=== PATIENT | male | born 1965 | race Caucasian/White ===

== ENCOUNTER 2021-06-01 11:49 | Day surgery (SDC) | payer OTHER ==
[~2021-06-01] VITALS: Ht 182.9 cm; Wt 122.0 kg
[2021-06-01 13:43] VITALS: BP 145/95; PULSE 73; TEMP 97.4
[2021-06-01] MEDS ORDERED: PEPCID 20MG TAB20 MG PO (13:46)
[2021-06-01] MEDS ORDERED: SINGULAIR 110 MG/TAB PO (13:47)
[2021-06-01] MEDS ORDERED: REGLAN 5MG T5 MG/TAB PO (13:47)
[2021-06-01] MEDS ORDERED: PRILOSEC 20MG20 MG PO (13:47)
[2021-06-01] MEDS ORDERED: ALLEGRA 180MG180 MG PO (13:48)
[2021-06-01] MEDS ORDERED: PROAIR HFA0.09 MG/AC IH (13:48)
[2021-06-01] MEDS ORDERED: MOTRIN 600600 MG/TAB PO (14:47)
[2021-06-01] MEDS ORDERED: NORCO 325 MG-51 TAB PO (14:47)
[2021-06-01 17:15] VITALS: BP 152/91; PULSE 73; TEMP 97.4
[2021-06-01 17:40] VITALS: BP 138/89; PULSE 71
--- NOTE | 2021-06-01 18:14 | NUR ---
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 1715 Pt returns from PACU via cart and this RN assist to [facility] [place] [address]. Monitors on and alarms set. Call light within reach. Pt alert and oriented. Pt ready for discharge. Pt requests crackers and water--"whatever helps me get out fastest." Pt denies any pain or nausea. 1720 Pt ambulates with this RN assist to restroom and voids. 1730 Pt taking food and drink well. No complications noted. 1740 Discharge instructions given to pt. All questions answered to his satisfaction. Handed to pt are a thank you card and discharge information. 1747 Pt transferred out of the hospital via wheelchair and this RN assist, to private vehicle driven by pt's .
== END 2021-06-01 17:47 | disposition home or self-care (01) ==
LOC: SDCO 11:49
DX: K80.10 Calculus of gallbladder with chronic cholecystitis without obstruction (principal); J84.10 Pulmonary fibrosis, unspecified; K21.9 Gastro-esophageal reflux disease without esophagitis; Z79.899 Other long term (current) drug therapy; Z79.891 Long term (current) use of opiate analgesic; Z80.8 Family history of malignant neoplasm of other organs or systems
CPT/HCPCS: J2704; J3010; J7120; Q9967